=== PATIENT | male | born 1955 | race Caucasian/White ===

== ENCOUNTER 2017-07-28 06:22 | Inpatient (IN) | payer OTHER ==
[2017-07-17 10:04] LABS: ABSOLUTE EOSINOPHILS 0.2 thou/uL (0.0-0.7); ABSOLUTE LYMPHOCYTES 2.1 thou/uL (0.8-5.3); ABSOLUTE MONOCYTES 0.7 thou/uL (0.0-1.2); ABSOLUTE NEUTROPHILS 4.6 thou/uL (1.6-8.1); BASOPHILS 0.5 %; EOSINOPHILS 2.3 %; HEMATOCRIT 40.9 % (42.0-52.0); LYMPHOCYTES 27.8 %; MCH 34.3 pg (26.0-34.0); MCHC 34.2 g/dL (28.0-37.0); MCV 100.1 fL (80.0-100.0); MONOCYTES 9.2 %; NUCLEATED RBCS 0 /100WBC; PLATELET COUNT* 284 thou/uL (150-400); POLYS 60.2 %; RBC 4.08 mil/uL (4.50-6.00); RDW-CV 14.4 % (10.5-14.5); WBC 7.6 thou/uL (4.0-11.0)
[2017-07-17 10:15] LABS: APTT 27.5 Seconds (25.0-31.3); PROTIME 9.9 Seconds (9.20-11.50)
[2017-07-17 10:20] LABS: ALBUMIN 3.6 g/dL (3.4-5.0); CALCIUM 8.7 mg/dL (8.5-10.1); CREATININE 1.4 mg/dL (0.6-1.3); POTASSIUM 4.1 mmol/L (3.5-5.1); TOTAL BILIRUBIN 0.7 mg/dL (<0.1-1.0); TOTAL PROTEIN 7.3 g/dL (6.4-8.2)
[2017-07-17 11:09] LABS: ESR (SEDRATE) 5 mm/hr (0-20)
--- NOTE | 2017-07-17 14:46 | EKG ---
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1955 Requested By: Adrián Head Order Number: [id number] Reading MD: Chicho Wells Measurements Intervals [place] Rate: 75 P: 44 AR: 196 QRS: -21 QRSD: 188 T: 169 QT: 446 QTc: 499 Interpretive Statements Sinus rhythm Probable left atrial enlargement Left bundle branch block Compared to ECG 07/25/2016 09:04:05 No significant changes Electronically Signed On 07-17-2017 14:46:48 FLOOR CARE SPECIALIST by Chicho Wells [email or web address] <ELECTRONICALLY SIGNED> By: Chicho Wells MD, [facility] 07/17/17 1446 0911 0 Chicho Wells MD, FACC /EPI
[2017-07-18 04:06] LABS: GLYCOHEMOGLOBIN (HGB A1C) 4.9 % (4.8-5.6)
[~2017-07-28] VITALS: Ht 180.3 cm; Wt 108.9 kg
[~2017-07-28 06:22] MED LIST: ADALAT CC90 MG PO; ALBUTEROL; APAP500 PO; ASPIR 8181 MG PO; ASPIRIN325 PO; CARVEDILOL25 MG PO; CEPHALEXIN 500500 M1; COLACE 100 MG100 MG PO; COLACE100 MG PO; COREG PO; COZAAR 50 MG TA50 M2 PO; LASIX 40 MG TAB40 M1 PO; LISINOPRIL5 MG PO; LOSARTAN POTASS50 MG; METAMUCIL PAC1 UDPKT PO; MOBIC15 MG PO; NORCO 5-325 TA1 EACH PO; OXYCODONE HCL 55 MG PO; POTASSIUM CHLO10 ME1 PO; TESTOSTERON100 MG/ML SUBQ; TRAMADOL 50 MG50 MG PO; XARELTO10 MG PO
[2017-07-28 17:37] VITALS: BP 125/86
[2017-07-28 20:00] VITALS: BP 120/82
[2017-07-29 00:49] VITALS: BP 122/88
[2017-07-29 04:40] VITALS: BP 149/84
[2017-07-29 04:48] LABS: HEMATOCRIT 35.3 % (42.0-52.0); HEMOGLOBIN 11.8 gm/dL (14.0-18.0)
[2017-07-29 08:50] VITALS: BP 132/87
[2017-07-29 16:38] VITALS: BP 111/73
[2017-07-29 19:45] VITALS: BP 125/77
[2017-07-29 23:44] VITALS: BP 126/84
[2017-07-30 04:18] VITALS: BP 127/84
[2017-07-30 04:54] LABS: HEMATOCRIT 32.2 % (42.0-52.0); HEMOGLOBIN 10.9 gm/dL (14.0-18.0)
[2017-07-30 10:07] VITALS: BP 124/84
[2017-07-30] MEDS ORDERED: OXYCODONE HCL 55 MG PO (12:04)
[2017-07-30] MEDS ORDERED: ELIQUIS2.5 MG PO (12:05)
[2017-07-30 12:09] VITALS: BP 124/84
[2017-07-30] MEDS ORDERED: STOOL SOFT50 MG/5 ML PO (12:15)
--- NOTE | 2017-07-30 13:19 | S ---
[place] [address] SURGICAL PATH RPT PROCEDURE Name: HARDIK BETTS Room: [address] IN .R.#: [id number] Admission: 07/28/17 Date of : 59 Discharge: Report #: [id number] Path Case #: [id number] PATHOLOGY REPORT COLLECTION DATE: 07/28/2017 RECEIVED DATE: 07/29/2017 SUBMITTING PHYS: Dr. Adrián Head OTHER PHYS: Dr. Yury Mullins SPECIMEN(S) RECEIVED: A.Left capsule and femoral head B.Bone left hip * * * * * * * * * * * * FINAL DIAGNOSIS: A. Tissue submitted as "left capsule and femoral head": - Benign dense fibrous connective tissue and synovium. B. Bone left hip: - Benign femoral head/neck tissues with severe degenerative changes. (JOSESITO:sandor; 07/30/2017) PATHOLOGIST: Arnav Donnelly M.D. REPORT ELECTRONICALLY SIGNED BY: Arnav Donnelly M.D. DATE/TIME: 07/30/2017 13:19 * * * * * * * * * * * * GROSS PATHOLOGY: A. Received in formalin labeled "Hardik Betts, left capsule and femoral head" and consists of a firm, and red-brown to bah tissue fragment measuring 4.2 x 3.0 x 1.5 cm. Sectioning reveals extremely dense bah-white cut surfaces. No osseous tissue is present within the specimen container. Economic Specialist sections are submitted as A1. B. Received in formalin labeled "Hardik Betts, bone left hip" and consists of a femoral head, 5.7 x 5.7 x 4.2 cm and a portion of femoral neck measuring 4.5 cm in diameter by 2.5 cm in length. The articular surface of femoral head is pitted, roughened, and shows an area of eburnation measuring 3.7 cm. Sectioning reveals red to yellow-brown cancellous bone. Sectioning the femoral neck reveals hemorrhagic cancellous bone. Also within the container is a 9.0 x 7.0 x 2.8 cm aggregate of bone reamings and fibrous tissue fragments. Economic Specialist sections are submitted as B1 following formalin fixation and decalcification. (MI; 07/29/2017) [place] [address] SURGICAL PATH RPT PROCEDURE Name: HARDIK BETTS Room: [address] IN .R.#: [id number] Admission: 07/28/17 Date of : 59 Discharge: Report #: [id number] Path Case #: [id number] CLINICAL HISTORY: Left hip degenerative joint disease INITIAL CPT CODE(S): A; 44204 B; 30891, 63224 Professional services performed [place] [facility] [place] [address] Technical services performed by [facility] at [address] [place] [address], [address], [place] [address]. [facility] [address] [place] [address] PHONE: [phone] DIRECTOR: Roney Trinidad M.D. * * * END OF REPORT * * *
== END 2017-07-30 14:10 | disposition home or self-care (01) | DRG 470 ==
LOC: M.PRE 06:22 → M.ORTHSURG 09:54 → M.TBA 09:54 → M.PRE 10:15 → M.ORTHSURG 15:49
PROVIDERS: Orthopaedic Surgery; ADMIT Internal Medicine
PROC: 3E0U33Z Introduction of Anti-inflammatory into Joints, Percutaneous Approach (ICD-10-PCS; principal; 2017-07-28)
PROC: 0SRB04Z Replacement of Left Hip Joint with Ceramic on Polyethylene Synthetic Substitute, Open Approach (ICD-10-PCS; 2017-07-28)
DX: M16.12 Unilateral primary osteoarthritis, left hip (principal); D62 Acute posthemorrhagic anemia; Z96.651 Presence of right artificial knee joint; Z96.641 Presence of right artificial hip joint; I10 Essential (primary) hypertension; M19.012 Primary osteoarthritis, left shoulder; M19.011 Primary osteoarthritis, right shoulder; Z87.891 Personal history of nicotine dependence

== ENCOUNTER → 2017-11-18 | Outpatient (CLI) | payer OTHER ==
[~2017-11-18] MED LIST changes: +ELIQUIS2.5 MG PO; +STOOL SOFT50 MG/5 ML PO
== END ==
LOC: M.RAD 09:50
DX: I50.21 Acute systolic (congestive) heart failure (principal)

== ENCOUNTER → 2020-02-07 | Outpatient (CLI) | payer OTHER ==
--- NOTE | 2020-02-07 11:49 | 2DMMODE ---
[place] [address] 2 D/M-MODE ECHOCARDIOGRAM Name: SAHARAArvindDOMINGO Ana Room: [facility].#: [id number] Admission: 02/07/20 Attend Phys: Robert Mckeon, Discharge: Date of : 59 Date of Service: 02/07/20 1149 Report #: [id number] THIS REPORT FOR: cc: Susan Mullins Linda J. DO Blick,Chicho Tate MD [facility] ~ APPROVED REPORT Study performed: 02/07/2020 09:24:35 EXAM: Comprehensive 2D, Doppler, and color-flow Echocardiogram Patient Location: Out-Patient BSA: 2.41 HR: 76 bpm BP: 135/90 mmHg Other Information Study Quality: Fair Indications Cardiomyopathy 2D Dimensions IVSd: 14.19 (7-11mm) LVOT Diam: 22.26 (18-24mm) LVDd: 56.12 mm PWd: 14.00 (7-11mm) Ascending Ao: 35.04 (22-36mm) LVDs: 40.98 (25-40mm) Aortic Root: 30.88 mm Volumes Left Atrial Volume (Systole) LA ESV Index: 20.40 mL/m2 Aortic Valve AoV Peak Gilmar.: 1.01 m/s AO Peak Gr.: 4.08 mmHg LVOT Max P.64 mmHg AO Mean Gr.: 2.56 mmHg LVOT Mean P.93 mmHg LVOT Max V: 0.64 m/s AO V2 VTI: 17.35 cm LVOT Mean V: 0.45 m/s TRICE (VTI): 2.57 cm2 LVOT V1 VTI: 11.46 cm Mitral Valve MV Decel. Time: 136.75 [place] [address] 2 D/M-MODE ECHOCARDIOGRAM Name: DOMINGO LOPEZ Room: [facility]#: [id number] Admission: 02/07/20 Attend Phys: Robert Mcekon, Discharge: Date of : 59 Date of Service: 02/07/20 1149 Report #: [id number] MV PHT: 39.66 ms MVA (PHT): 5.55 cm2 TDI Medial E' Gilmar.: 0.04 m/s Lateral E' Gilmar.: 0.05 m/s Pulmonary Valve PV Peak Gilmar.: 0.85 m/s PV Peak Gr.: 2.90 mmHg Left Ventricle The left ventricle is normal size. moderate hypokinesis of the mid and distal anteroseptal wall and apex Mild concentric left ventricular hypertrophy. Left ventricular systolic function is moderately decreased. LVEF is 30-35%. Grade I - abnormal relaxation pattern. Right Ventricle The right ventricle is normal size. The right ventricular systolic function is normal. Atria The left atrium size is normal. The right atrium size is normal. Aortic Valve Aortic valve is not well visualized. No aortic regurgitation is present. There is no aortic valvular stenosis. Mitral Valve The mitral valve is normal in structure. There is no mitral valve regurgitation noted. No evidence of mitral valve stenosis. Tricuspid Valve The tricuspid valve is normal in structure. There is no tricuspid valve regurgitation noted. Pulmonic Valve Pulmonic valve is not well visualized. There is no pulmonic valvular regurgitation. Great Vessels The aortic root is normal in size. IVC is normal in size and collapses >50% with [place] [address] 2 D/M-MODE ECHOCARDIOGRAM Name: DOMINGO LOPEZ Room: [facility]#: [id number] Admission: 02/07/20 Attend Phys: Robert Mckeon, Discharge: Date of : 59 Date of Service: 02/07/20 1149 Report #: [id number] There is no pericardial effusion. <Conclusion> Mild concentric left ventricular hypertrophy. LVEF is 30-35%. moderate hypokinesis of the mid and distal anteroseptal wall and apex <ELECTRONICALLY SIGNED> By: Chicho Wells MD, [facility] 02/07/20 1149 1149 48 Chicho Wells MD, FACC /INF
== END ==
LOC: M.CRD 09:00
PROVIDERS: ATTEND Internal Medicine Cardiovascular Disease
DX: I42.8 Other cardiomyopathies (principal)

== ENCOUNTER → 2020-03-30 | Outpatient (CLI) | payer OTHER ==
[~2020-03-30] VITALS: Ht 180.3 cm; Wt 120.2 kg
[2020-03-30 12:03] VITALS: BP 150/93
[2020-03-30 12:07] LABS: HEMATOCRIT 40.2 % (42.0-52.0); HEMOGLOBIN 13.5 gm/dL (14.0-18.0); MCH 29.4 pg (26.0-34.0); MCHC 33.5 g/dL (28.0-37.0); MCV 87.8 fL (80.0-100.0); MPV 6.9 fl. (7.2-11.1); RBC 4.58 mil/uL (4.50-6.00); RDW-CV 15.8 % (10.5-14.5); WBC 6.6 thou/uL (4.0-11.0)
[2020-03-30 12:20] LABS: ANION GAP 7 mmol/L (7-16); BUN 16 mg/dL (7-18); CHLORIDE 100 mmol/L (98-107); CO2 29 mmol/L (21-32); GLUCOSE 91 mg/dL (70-99); POTASSIUM 4.5 mmol/L (3.5-5.1); SODIUM 136 mmol/L (136-145)
[2020-03-30 12:25] LABS: ALBUMIN 3.6 g/dL (3.4-5.0); ALKALINE PHOSPHATASE 85 U/L (46-116); CHOLESTEROL 176 mg/dL (<200); HDL CHOLESTEROL 75 mg/dL (>40); LDL CHOLESTEROL 91 mg/dL (<100); SGOT 21 U/L (15-37); SGPT 21 U/L (30-65); TC:HDL 2.3 Ratio (Not establshd); TOTAL BILIRUBIN 0.4 mg/dL (<0.1-1.0); TOTAL PROTEIN 7.7 g/dL (6.4-8.2); TRIGLYCERIDE 54 mg/dL (<150); VLDL 11 mg/dL (<40)
[2020-03-30 12:26] LABS: SERUM ASSESSMENT Clear
[2020-03-30 13:27] VITALS: BP 171/111
[2020-03-30 13:44] VITALS: BP 175/103
[2020-03-30 14:02] VITALS: BP 170/98
[2020-03-30 14:24] VITALS: BP 155/99
[2020-03-30 15:03] VITALS: BP 154/92
--- NOTE | 2020-03-31 18:20 | CARD ---
[address] [address] CARDIAC CATH REPORT Name: DOMINGO LOPEZ Room: [facility].#: [id number] Admission: 03/30/20 Attend Phys: Robert Mckeon MD Discharge: Date of : 59 Report #: [id number] THIS REPORT FOR: //name// cc: Susan Mullins Linda J. DO ~ APPROVED REPORT Study performed: 03/30/2020 11:57:02 Patient Details Patient Status: Out-Patient Room #: The patient is a 64 year-old male Event Personnel Robert Mckeon Property Portfolio Officer, Preeti Geronimo RN RN, Aiyana Trujillo RTR Monitor, Nataly Cervantes RTR Scrub Procedures Performed Art Access - R femoral artery, Left Heart Cath w/or w/o Coronaries LHC , Hemostasis w/ Mynx Procedure Narrative The patient was brought electively to the Cardiac Catheterization Laboratory and was prepped and draped in a sterile manner. The right femoral was infiltrated with 2% Lidocaine subcutaneous anesthesia. A 6F Beaumont sheath was inserted into the right femoral artery. Coronary angiography was performed using coronary diagnostic catheters. The right coronary system was accessed and visualized with a 6F JR4 catheter. The left coronary system was accessed and visualized with a 6F JL4 catheter. The left ventricle was accessed and visualized with a 6F Straight Pigtail catheter. Left ventricular/Aortic Valve gradient assessed via catheter pullback. Pre-demployment femoral angiogram was performed . Closure device was deployed with a 6 Fr MynxGrip. The patient tolerated the procedure well and there were no complications associated with the procedure. There was no hematoma. The right wrist was infiltrated with 2% Lidocaine subcutaneous anesthesia. Unable to gain right radial arterial access. Intraoperative Conscious Sedation Sedation start time: 12:26 Case end Time: 12:51 Fentanyl 25 mcg Versed 1 mg Fluoro Time: 3.8 [place] [address] CARDIAC CATH REPORT Name: DOMINGO LOPEZ Room: [facility]#: [id number] Admission: 03/30/20 Attend Phys: Robert Mckeon MD Discharge: Date of : 59 Report #: [id number] Dose: DAP 1119 cGycm2 1.0 mGy Contrast Type and Amount: Visipaque 95 ml Diagnostic Cath Left Main The left main coronary artery is normal and trifurcates into a left anterior descending, circumflex and small intermediate ramus artery. LAD The left anterior descending coronary artery is normal in its proximal mid and distal portion. Diagonal 1 A large high rising first diagonal branch is normal. Diagonal 2 A distal second diagonal l branch is normal. Circumflex The circumflex coronary artery is normal in its proximal, mid and distal portions. OM1 The first obtuse marginal branch is a large branch vessel that is normal. Right Coronary The right coronary artery is normal in its proximal mid and distal portion. R PDA The right posterior descending artery is normal. Left Ventriculography Left Ventriculography was not performed. The left ventricle is mildly dilated in size with Reduced contractility. The left ventricular ejection fraction is estimated to be 30%. Left ventricular wall motion abnormalities are not present. There is global hypokinesis noted. Hemodynamics The aortic pressure is 164/101 mmHg with a mean of 123 mmHg. The left ventricular pressure is 165/22 mmHg with a mean of mmHg. The left ventricular end diastolic pressure is 32 mmHg. Conclusion 1. Normal coronary arteries. 2. Moderate to severe left ventricular systolic dysfunction. 3. Elevated left ventricular end-diastolic pressure consistent with acute on chronic diastolic heart failure. 4. Findings consistent with nonischemic cardiomyopathy. Recommendations 1. Continue aggressive [place] [address] CARDIAC CATH REPORT Name: DOMINGO LOPEZ Room: [facility]#: [id number] Admission: 03/30/20 Attend Phys: Robert Mckeon MD Discharge: Date of : 59 Report #: [id number] 2. Continue aggressive medical treatment of underlying congestive heart failure. <ELECTRONICALLY SIGNED> By: Robert Mckeon MD, [facility] 03/31/20 1820 19 1820Robert Mckeon MD, FACC /INF
== END ==
LOC: M.CL 11:27
PROVIDERS: ATTEND Internal Medicine Cardiovascular Disease
DX: R94.30 Abnormal result of cardiovascular function study, unspecified (principal); I11.0 Hypertensive heart disease with heart failure; I50.22 Chronic systolic (congestive) heart failure; I42.9 Cardiomyopathy, unspecified; J44.9 Chronic obstructive pulmonary disease, unspecified; Z79.899 Other long term (current) drug therapy; Z98.890 Other specified postprocedural states; Z87.891 Personal history of nicotine dependence; Z20.828 Contact with and (suspected) exposure to other viral communicable diseases

== ENCOUNTER → 2020-08-10 | Outpatient (CLI) | payer OTHER ==
[~2020-08-10] MED LIST changes: +ENTRESTO 97 MG1 EACH PO; +MELOXICAM15 MG PO; +NIFEDIPINE ER30 M1 PO; +SPIRONOLACTONE25 MG PO
[2020-08-10 13:29] VITALS: BP 141/84
--- NOTE | 2020-08-10 14:01 | 2DMMODE ---
[place] [address] 2 D/M-MODE ECHOCARDIOGRAM Name: DOMINGO LOPEZ Room: [facility]#: [id number] Admission: 08/10/20 Attend Phys: Robert Mckeon, Discharge: Date of : 59 Date of Service: 08/10/20 1401 Report #: [id number] THIS REPORT FOR: cc: Susan Mullins Linda J. DO Liston, Michael J. MD [facility] ~ APPROVED REPORT Study performed: 08/10/2020 11:19:43 EXAM: Comprehensive 2D, Doppler, and color-flow Echocardiogram Patient Location: Out-Patient Status: routine BSA: 2.40 HR: 80 bpm Indications Cardiomyopathy 2D Dimensions IVSd: 12.51 (7-11mm) LVOT Diam: 27.54 (18-24mm) LVDd: 56.69 mm PWd: 13.68 (7-11mm) Ascending Ao: 38.87 (22-36mm) LVDs: 41.89 (25-40mm) Aortic Root: 41.59 mm Volumes Left Atrial Volume (Systole) LA ESV Index: 23.50 mL/m2 Aortic Valve AoV Peak Gilmar.: 0.90 m/s AO Peak Gr.: 3.21 mmHg LVOT Max P.04 mmHg AO Mean Gr.: 1.80 mmHg LVOT Mean P.04 mmHg LVOT Max V: 0.71 m/s AO V2 VTI: 14.12 cm LVOT Mean V: 0.48 m/s LVOT V1 VTI: 12.71 cm Mitral Valve E/A Ratio: 0.54 MV Decel. Time: 187.88 ms MV E Max Gilmar.: 0.44 m/[place] [address] 2 D/M-MODE ECHOCARDIOGRAM Name: DOMINGO LOPEZ Room: [facility]#: [id number] Admission: 08/10/20 Attend Phys: Robert Mckeon, Discharge: Date of : 59 Date of Service: 08/10/20 1401 Report #: [id number] MV PHT: 54.49 ms MVA (PHT): 4.04 cm2 TDI E/Lateral E': 6.29 E/Medial E': 5.50 Medial E' Gilmar.: 0.08 m/s Lateral E' Gilmar.: 0.07 m/s Pulmonary Valve PV Peak Gilmar.: 1.02 m/s PV Peak Gr.: 4.17 mmHg Left Ventricle The left ventricle is normal size. There is mild global hypokinesis. There is left-ventricular systolic dyssynergy consistent with underlying bundle branch block. There is normal left ventricular wall thickness. Left ventricular systolic function is mildly decreased. LVEF is 50%. Grade I - abnormal relaxation pattern. Right Ventricle The right ventricle is normal size. The right ventricular systolic function is normal. Atria The left atrium size is normal. The right atrium size is normal. Aortic Valve The aortic valve is normal in structure. No aortic regurgitation is present. There is no aortic valvular stenosis. Mitral Valve The mitral valve is normal in structure. There is no mitral valve regurgitation noted. No evidence of mitral valve stenosis. Tricuspid Valve The tricuspid valve is normal in structure. Unable to assess PA pressure. Trace tricuspid regurgitation. Pulmonic Valve The pulmonary valve is normal in structure. Trace pulmonic regurgitation. Great Vessels The aortic root is normal in size. The ascending aorta is mildly dilated. IVC is normal in size and collapses >50% [place] [address] 2 D/M-MODE ECHOCARDIOGRAM Name: DOMINGO LOPEZ Room: [facility]#: [id number] Admission: 08/10/20 Attend Phys: Robert Mckeon, Discharge: Date of : 59 Date of Service: 08/10/20 1401 Report #: [id number] Pericardium There is no pericardial effusion. <Conclusion> The left ventricle is normal size. There is normal left ventricular wall thickness. Left ventricular systolic function is mildly decreased. LVEF is 50%. Grade I - abnormal relaxation pattern. There is mild global hypokinesis. There is left-ventricular systolic dyssynergy consistent with underlying bundle branch block. Trace tricuspid regurgitation. IVC is normal in size and collapses >50% with inspiration. The ascending aorta is mildly dilated. <ELECTRONICALLY SIGNED> By: Robert Mckeon MD, FACC 08/10/20 140 140 140 Robert Mckeon MD, FACC /INF
[2020-08-10 14:17] VITALS: BP 139/88
[2020-08-10 14:24] VITALS: BP 139/91
[2020-08-10 14:36] VITALS: BP 139/91
[2020-08-10 14:47] VITALS: BP 137/92
--- NOTE | 2020-08-16 14:27 | CARD ---
[address] [address] CARDIAC CATH REPORT Name: DOMINGO LOPEZ Room: [facility].#: [id number] Admission: 08/10/20 Attend Phys: Robert Mckeon MD Discharge: Date of : 59 Report #: [id number] THIS REPORT FOR: cc: Susan Mullins Linda J. DO ~ Robert Mckeon MD [facility] PROCEDURE: Implantable loop recorder placement. DIAGNOSES: Syncope and near syncope. DESCRIPTION OF PROCEDURE: After informed consent was obtained, the area of the chest was prepped and draped in sterile fashion. The area of the fourth intercostal space, left of sternum was identified. Local anesthesia was achieved with 1% lidocaine. Next, after an initial incision was made, a Biotronik BioMonitor III implantable loop recorder was placed. The patient tolerated the procedure well without complication. The incision was closed with Dermabond. The patient was discharged uneventfully. IMPRESSION: 1. Syncope and near syncope. 2. Successful placement of implantable loop recorder. <ELECTRONICALLY SIGNED> By: Robert Mckeon MD, [facility] 08/16/20 1427 1249 [id number] Mckeon MD, FACC /nt
== END | disposition home or self-care (01) ==
LOC: M.CRD 11:00
PROVIDERS: ATTEND Internal Medicine Cardiovascular Disease
DX: I42.9 Cardiomyopathy, unspecified (principal); R55 Syncope and collapse; I07.1 Rheumatic tricuspid insufficiency; I77.819 Aortic ectasia, unspecified site; M19.90 Unspecified osteoarthritis, unspecified site; Z98.890 Other specified postprocedural states; Z79.899 Other long term (current) drug therapy

== ENCOUNTER → 2020-09-26 | Outpatient (CLI) | payer OTHER ==
[2020-09-26] VITALS (7 sets, daily range): BP systolic 119–124; BP diastolic 63–78
[~2020-09-26] VITALS: Ht 180.3 cm; Wt 117.5 kg
[2020-09-26 10:37] LABS: HEMOGLOBIN 12.9 gm/dL (14.0-18.0); MCH 29.5 pg (26.0-34.0); MCHC 32.3 g/dL (28.0-37.0); MCV 91.3 fL (80.0-100.0); MPV 7.2 fl. (7.2-11.1); RBC 4.38 mil/uL (4.50-6.00); WBC 7.5 thou/uL (4.0-11.0)
[2020-09-26 10:49] LABS: APTT 26.9 Seconds (25.0-31.3); INR 0.9; PROTIME 9.9 Seconds (9.20-11.50)
[2020-09-26 10:54] LABS: CALCIUM 9.3 mg/dL (8.5-10.1); CREATININE 1.2 mg/dL (0.6-1.3); POTASSIUM 4.9 mmol/L (3.5-5.1)
[2020-09-26 10:59] LABS: ALBUMIN 3.6 g/dL (3.4-5.0); TOTAL BILIRUBIN 0.4 mg/dL (<0.1-1.0); TOTAL PROTEIN 8.1 g/dL (6.4-8.2)
--- NOTE | 2020-09-26 13:38 | EKG ---
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1955 Requested By: Robert Mckeon Order Number: [id number] Reading MD: Chicho Wells Measurements Intervals [place] Rate: 64 P: -2 ID: 245 QRS: -22 QRSD: 183 T: 175 QT: 434 QTc: 448 Interpretive Statements Sinus rhythm Ventricular premature complex Prolonged ID interval Consider left atrial enlargement Left bundle branch block Compared to ECG 07/17/2017 09:11:33 Ventricular premature complex(es) now present First degree AV block now present Electronically Signed On 09-26-2020 13:37:50 CDT by Chicho Wells [email or web address] <ELECTRONICALLY SIGNED> By: Chicho Wells MD, FAC 09/26/20 1337 1126 1126 Chicho Wells MD, FAC /EPI
--- NOTE | 2020-09-27 16:56 | H ---
[place] [address] HISTORY AND PHYSICAL Name: DOMINGO LOPEZ Room: [facility].#: [id number] Admission: 09/26/20 Attend Phys: Robert Mckeon MD Discharge: Date of : 59 Report #: [id number] THIS REPORT FOR: cc: Susan Mullins Linda J. DO Liston, Michael J. MD [facility] ~ DATE OF SERVICE: 09/26/2020 INDICATION: Admission for placement of pacing ICD. HISTORY OF PRESENT ILLNESS: The patient is a very pleasant 65-year-old gentleman with history of a nonischemic cardiomyopathy with ejection fraction of approximately 30-35% by noninvasive studies. He had been having some syncope and near syncope for which an implantable loop recorder was placed. He continued to have symptoms. The implantable loop recorder shows several significant sinus node pauses with episode lasting up to 9 seconds. The patient reports with these longer episodes, he has significant dizziness and near-syncope. He is not having any chest pain or shortness of breath. He is without other cardiac complaint at this time. PAST MEDICAL HISTORY: 1. Nonischemic cardiomyopathy. 2. Essential hypertension. 3. Near syncope as outlined above. 4. Remote history of tobacco use. SOCIAL HISTORY: The patient has a remote history of tobacco use. He drinks alcohol occasionally. FAMILY HISTORY: Noncontributory. ALLERGIES: None documented. CURRENT MEDICATIONS: Carvedilol 25 mg p.o. b.i.d., furosemide 40 mg p.o. daily, meloxicam 15 mg daily, nifedipine 30 mg daily, Entresto 97/103 mg 1 tablet b.i.d., spironolactone 25 mg daily. REVIEW OF SYSTEMS: A 14-point review of systems as per HPI, otherwise unremarkable. PHYSICAL EXAMINATION: VITAL SIGNS: Stable. Blood pressure is 142/76, pulse is 68 and regular. GENERAL: This is a pleasant gentleman in no distress. Mood and affect appropriate. HEENT: Extraocular muscles intact. [place] [address] HISTORY AND PHYSICAL Name: SAHARAArvindDOMINGO Ana Room: [facility]#: [id number] Admission: 09/26/20 Attend Phys: Robert Mckeon MD Discharge: Date of : 59 Report #: [id number] NECK: Shows no jugular venous distention. No carotid bruits. CHEST: Reveals clear lung burger. CARDIOVASCULAR: Reveals regular rhythm without gallop or murmur. ABDOMEN: Reveals normal bowel sounds. The abdomen is soft, nontender. EXTREMITIES: Shows no edema. Peripheral pulses 2+ and palpable. SKIN: Dry. IMPRESSION AND RECOMMENDATIONS: 1. Syncope and near-syncope with long pauses in cardiac rhythm seen on implantable loop recorder. The patient is being brought in for pacing defibrillator placement. 2. Nonischemic cardiomyopathy. The patient is on appropriate medications as outlined above. ICD is being placed for primary prevention. <ELECTRONICALLY SIGNED> By: Robert Mckeon MD, FACC 09/27/20 1656 1113 1144Micelis Mckeon MD, FACC /nt
--- NOTE | 2020-09-28 10:40 | CARD ---
[address] [address] CARDIAC CATH REPORT Name: DOMINGO LOPEZ Room: [facility]#: [id number] Admission: 09/26/20 Attend Phys: Robert Mckeon MD Discharge: Date of : 59 Report #: [id number] THIS REPORT FOR: cc: Susan Mullins Linda J. DO Liston, Michael J. MD [facility] ~ APPROVED REPORT Study performed: 09/26/2020 11:33:11 Patient Status: Out-Patient Room #: Event Personnel: Robert Mckeon Letterset Press Set Up Operator, Curtis Ashford RN RN, Nataly Cervantes RTR Monitor, Luis Armando PiresIS Scrub Exam: Insertion of a Dual Chamber ICD The patient is a 65 year-old male with a history of . Conscious Sedation Start time: 12:11 End Time: 12:40 Fentanyl 50 mcg Versed 2 mg Implanted Devices: ICD Generator- Biotronik Rivacor 7 DR-T [id number] V-Lead- Plexa ProMRI S 65 [id number] A-Lead Solia S 53 SN- [id number] Procedure The patient underwent informed consent. We discussed the details of the procedure including the risks, which include, but not limited to bleeding, infection, vascular damage, cardiac perforation, and pneumothorax. He understood these risks and was willing to proceed. As such, he was brought to the EP/Cardiac Catheterization laboratory in a fasting and sedated state and prepped and draped in a sterile fashion, received IV antibiotics prior to initiation of the procedure and a venogram was performed showing patency of the left axillary vein. The patient underwent conscious sedation, with no related complications. The patient was brought to the EP/Cardiac Catheterization laboratory and the left chest and shoulder were prepped and draped in a sterile manner. During this case, Fluoroscopy and No contrast were used for imaging. IV conscious sedation was used [place] [address] CARDIAC CATH REPORT Name: JOHNDOMINGO Ana Room: [facility]#: [id number] Admission: 09/26/20 Attend Phys: Robert Mckeon MD Discharge: Date of : 59 Report #: [id number] monitoring and was performed in the presence of a registered nurse who was an independent trained observer other than the physician performing the procedure. The left subclavian region was infiltrated with 2% Lidocaine with Epinephrine subcutaneous anesthesia. A transverse incision was made in the left upper chest cavity. The subcutaneous pocket was formed via blunt dissection. Percutaneous venous access was achieved and an introducer sheath was inserted into the left Subclavian vein. Utilizing fluoroscopic guidance, the atrial and ventricular lead wires were advanced over the wires and positioned in the right atria and right ventricle respectively. Capturing and sensing thresholds were verified. Electrode Parameters P Wave: 4.0 mV R Wave: 7.0 mmol Atrial Threshold: 0.5 V at 0.40 ms Ventricular Threshold: 0.4 V at 0.40 ms Atrial Resistance: 560 ohms Ventricular Resistance: 676 pounds Dual Chamber The atrial and ventricular leads were then secured using 0 silk sutures. The subcutaneous pocket was irrigated with ancef antibiotic solution.The atrial and ventricular leads were attached to the appropriate receptacles on the pulse generator and set screws firmly tightened to insure adequate contact and stability. The lead and pulse generator were placed into the subcutaneous pocket. Sharp and sponge counts were confirmed to be correct. At this time the pocket was closed subcutaneously with a 2.0 Vicryl and the skin was closed with a 4.0 Vicryl. The operative site was dressed in sterile fashion with benzoin spray, steri strips, telfa, and tegaderm and the patient was transferred to the floor in stable condition. Complications The patient tolerated the procedure well and there were no complications associated with the procedure. Findings Specimens Removed: No Estimated Blood Loss: 5 [place] [address] CARDIAC CATH REPORT Name: DOMINGO LOPEZ [id number] Admission: 09/26/20 Attend Phys: Robert Mckeon MD Discharge: Date of : 59 Report #: [id number] 1. Nonischemic cardiomyopathy. 2. Sick sinus syndrome with sinus node arrest and syncope. Recommendations 1. Follow-up site check in 1 week. 2. Follow-up device interrogation 1 to 2 months. <ELECTRONICALLY SIGNED> By: Robert Mckeon MD, FACC 09/28/20 1040 1040 1040Michaegagandeep Mckeon MD, FACC /INF
== END | disposition home or self-care (01) ==
LOC: M.CL 10:06
PROVIDERS: ATTEND Internal Medicine Cardiovascular Disease
DX: I42.0 Dilated cardiomyopathy (principal); I42.9 Cardiomyopathy, unspecified; I49.5 Sick sinus syndrome; R55 Syncope and collapse; I49.9 Cardiac arrhythmia, unspecified; I10 Essential (primary) hypertension; M19.90 Unspecified osteoarthritis, unspecified site; Z98.890 Other specified postprocedural states; Z79.899 Other long term (current) drug therapy; Z96.651 Presence of right artificial knee joint; Z96.641 Presence of right artificial hip joint; Z87.891 Personal history of nicotine dependence